=== PATIENT | female | born 1970 | race Two or more races ===

== ENCOUNTER 2022-02-08 13:22 | Emergency (ER) | payer OTHER ==
[~2022-02-08] VITALS: Ht 160 cm; Wt 68.0 kg
[2022-02-08] MEDS ORDERED: HYZAAR 50-12.51 EACH PO (13:48)
[2022-02-08] MEDS ORDERED: SYNTHROID50 MCG PO (13:48)
== END 2022-02-08 17:59 | disposition home or self-care (01) ==
LOC: ER 13:22
DX: I11.9 Hypertensive heart disease without heart failure (principal); Z88.0 Allergy status to penicillin

== ENCOUNTER 2023-08-04 17:09 | Emergency (ER) | payer OTHER ==
[~2023-08-04] VITALS: Ht 162.6 cm; Wt 63.5 kg
[~2023-08-04 17:09] MED LIST: HYZAAR 50-12.51 EACH PO; SYNTHROID50 MCG PO
[2023-08-04] MEDS ORDERED: NIFEDIPINE20 MG PO (17:13)
== END 2023-08-04 18:59 | disposition designated cancer center or children's hospital (05) ==
LOC: ER 17:11
DX: R60.0 Localized edema (principal); I10 Essential (primary) hypertension